=== PATIENT | male | born 1975 | race Two or more races ===

== ENCOUNTER 2021-02-18 09:56 | Outpatient (REF) | payer OTHER, SELFPAY ==
--- NOTE | ~2021-02-18 | XR_ITS ---
EXAMINATION: XR LUMBOSACRAL SPINE CLINICAL INFORMATION: Low back pain. COMPARISON: None TECHNIQUE: Three views of the lumbosacral spine. FINDINGS: There is normal lumbar lordosis. The vertebral heights, alignment and disc heights are normal. There is no visible acute fracture, dislocation or lytic process seen. The SI joints are symmetrical and normal. The paravertebral soft tissues are normal. XR/XR lumbar spine 2-3V IMPRESSION: Unremarkable lumbar spine exam.
== END 2021-02-18 09:57 | disposition home or self-care (01) ==
LOC: HO.XRAY 09:56
PROVIDERS: PCP Internal Medicine; Visit Provider Nurse Practitioner Family
DX: M54.5 Low back pain (principal)
CPT/HCPCS: 72100

== ENCOUNTER → 2023-04-10 09:30 | Outpatient (BNVA) | payer OTHER, SELFPAY | PROVIDERS: PCP Nurse Practitioner Family; Referring Provider Nurse Practitioner Family; Visit Provider Surgery | DX: K42.9 Umbilical hernia without obstruction or gangrene (principal) | CPT/HCPCS: 99202 ==

== ENCOUNTER 2023-05-15 06:56 | Day surgery (SDC) | payer OTHER, SELFPAY ==
[2023-05-10 11:39] VITALS: BMI 36.5
--- NOTE | 2023-05-14 10:26 | HO.ANESPROP2 ---
HPI - Anesthesia Eval Consult details Narrative: 48yo M for Open Hernia Repair Umbilical w/ Mesh PMFSH Active Problems Active Problems: All Active Problems (Updated 02/16/21 @ 17:35 by Kalli Gregg NP) Umbilical hernia (Acute) Lumbar pain (Acute) Past Medical History Medical History Lumbar pain Family History Family History Mother No problems noted. Father No problems noted. Surgical History Surgical History Surgical history unknown Social History Social History Alcohol intake: never Patient Tobacco Use Status: Never used Tobacco service: No Cognitive needs: No Hearing needs: No Vision needs: No Meds Allergies Allergy/AdvReac Type Severity Reaction Status Date / Time seafood Allergy Anaphylaxis Verified 05/15/23 08:28 Exam Exam Date and Time: May 14, 2023 1026 Height,Weight and Vital Signs: Height 5 ft 7 in Weight 105.687 kg Assessment and Plan Assessment Anesthesia Assessment: Chart Reviewed
--- NOTE | 2023-05-14 12:17 | MHC.SHP ---
Pre-Procedural Eval Section A Date of Service: 05/14/23 The patient is an INPATIENT: No Changes since office visit: No Cold of Flu in the past 2 weeks, No New Medical Problems, No Changes in Medication and No Patient answered all questions The History & Physical has been completed within 30 days and I have reviewed it.: Yes Section B Chief Complaint: Umbilical hernia without obstruction or gangrene Allergies: Allergies Allergy/AdvReac Type Severity Reaction Status Date / Time No Known Allergies Allergy Verified 04/10/23 09:38 Plan I have reviewed the history and physical and performed a pertinent physical examination on my patient. No changes have occurred unless specified. Time Spent With Patient Time: Total time managing care of this patient today ____ minutes.
[2023-05-15 09:09] VITALS: BP 172/82; PULSE 60; RESP 16; TEMP 36.6; O2SAT 99
[2023-05-15] MEDS: Lactated Ringers 1,000 ML 100 ML IVCONT (09:24)
--- NOTE | 2023-05-15 10:14 | P.CONAN_ITS ---
[facility] Active Problems Active Problems: All Active Problems (Updated 02/16/21 @ 17:35 by Kalli Gregg NP) Umbilical hernia (Acute) Lumbar pain (Acute) Past Medical History Medical History Lumbar pain Family History Family History Mother No problems noted. Father No problems noted. Surgical History Surgical History Surgical history unknown History of Problems with Anesthesia: No Social History Social History Alcohol intake: never Patient Tobacco Use Status: Never used Tobacco Use of substances other than those prescribed or required for medical reasons: No Are you DNR?: No Advance Directives: No Advance Directives Information Provided: Yes Recently lost weight without trying: No Nutrition Risks: No Nutritional Risk service: No Cognitive needs: No Hearing needs: No Vision needs: No Meds Allergies Allergy/AdvReac Type Severity Reaction Status Date / Time seafood Allergy Anaphylaxis Verified 05/15/23 08:28 Active Medications: Current Medications Lactated Ringer's (Lr) 1,000 mls @ 100 mls/hr IVCONT .Q10H MONALISA Last Admin: 05/15/23 09:24 Dose: 100 mls/hr Exam Exam Date and Time: May 15, 2023 1014 Height,Weight and Vital Signs: Height 5 ft 7 in Weight 105.687 kg Last Vital Signs Temp 97.8 F 05/15/23 09:09 Pulse 60 05/15/23 09:09 Resp 16 05/15/23 09:09 BP 172/82 H 05/15/23 09:09 Pulse Ox 99 05/15/23 09:09 O2 Del Method Room Air 05/15/23 09:09 Airway Mallampati Class: II TM Dist: >3cm Neck ROM: Full Heart: RRR Lungs: CTA Assessment and Plan Final Anesthetic Review History of Problems with Anesthesia: No NPO: Yes ASA Class: II Final Preanesthetic Review: Meds/Allgs Chart Reviewed, Consent Obtained/Reviewed and Anes Risks/Benef Reviewed Patient Risk: Low Procedure Risk: Low Anesthetic Plan Anesthetic Plan: GA Disposition: Standard PACU
--- NOTE | 2023-05-15 10:38 | P.OP_ITS ---
Operative Note Operative Note Date of Service: 05/15/23 Narrative: Preoperative diagnosis: [] Incarcerated umbilical hernia Postop diagnosis: [] Same Procedure [] repair incarcerated umbilical hernia with Bard mesh Surgeon: [] Shan Dance Choreographer: [] isaura Garg Type of Anesthesia: [] General Indication for surgery: [] Approximately 3 cm incarcerated umbilical hernia with omental contents Findings: [] Patient brought to the operating room, placed on operative table supine position, after adequate level of general anesthesia was induced, the patient's abdomen was prepped and draped in usual sterile fashion. Using an infraumbilical curvilinear incision, this carried down through skin, subcutaneous tissue, where hernia sac was identified and dissected off the posterior aspect of the umbilicus. Dissection was carried down to the fascia where sac was opened and incarcerated omentum and sac were amputated using Bovie. Specimen sent to pathology. Fascia was circumferentially cleared and a Bard mesh was placed in the defect. The superficial layer of the mesh was circumferentially sutured to the surrounding fascia using 0 Ethibond suture. At completion, mesh was in good position with no gaps or tension. Wound was irrigated, secured hemostasis, and closed in the following manner; posterior aspect of the umbilicus was tacked to the wound floor using interrupted 3-0 Vicryl sutures. Skin was closed using interrupted inverted dermal 3-0 Vicryl sutures followed by Steri-Strips and sterile dressings. Wound was infiltrated 0.5% Marcaine/1% lidocaine at completion of the procedure. Sponge, needle, and instrument counts were reported to be correct. Patient tolerated the procedure well and emerged anesthesia stable condition. EBL minimal
[2023-05-15 10:50] VITALS: BP 137/65; PULSE 60; RESP 16; TEMP 36.1; O2SAT 95
[2023-05-15 10:55] VITALS: BP 146/76; PULSE 59; RESP 16; O2SAT 100
[2023-05-15 11:00] VITALS: BP 133/68; PULSE 59; RESP 16; O2SAT 99
[2023-05-15 11:05] VITALS: BP 142/77; PULSE 61; RESP 16; O2SAT 99
[2023-05-15 11:20] VITALS: BP 145/74; PULSE 61; RESP 16; TEMP 36.1; O2SAT 96
--- NOTE | 2023-05-15 12:50 | HO.POSTANES ---
Post Anesthesia Evaluation Post Anesthesia Evaluation Date of Service: 05/15/23 Vital Signs: Vital Signs Temp Pulse Resp BP Pulse Ox O2 Del Method O2 Flow Rate 05/15/23 11:20 97 F 61 16 145/74 H 96 Room Air 05/15/23 11:05 61 16 142/77 H 99 Room Air 0 05/15/23 11:00 59 16 133/68 99 Nasal Cannula 2 05/15/23 10:55 59 16 146/76 H 100 Nasal Cannula 2 05/15/23 10:50 97 F 60 16 137/65 95 Nasal Cannula 2 05/15/23 09:09 97.8 F 60 16 172/82 H 99 Room Air Anesthesia: General LMA Mental Status: Awake Pain Control: Satisfactory Nausea/Vomiting: None Hydration: Adequate Anesthesia-Related Issues: No Anes. Related Issues
== END 2023-05-15 12:17 | disposition home or self-care (01) ==
PROVIDERS: PCP Internal Medicine; Visit Provider Surgery
PROC: (CPT 49592; principal; 2023-05-15 09:10)
DX: K42.0 Umbilical hernia with obstruction, without gangrene (principal)
CPT/HCPCS: 49592; 88302; C1781; J0690; J1100; J1885; J2250; J2405; J2795; J3010

== ENCOUNTER → 2023-05-23 13:13 | Outpatient (BNVA) | payer OTHER, SELFPAY | PROVIDERS: PCP Internal Medicine; Visit Provider Surgery ==

== ENCOUNTER 2023-12-13 10:24 | Emergency (ER) | payer OTHER, SELFPAY ==
[2023-12-13 10:49] VITALS: BP 178/90; PULSE 67; RESP 16; TEMP 36.6; O2SAT 98; BMI 37.3
[2023-12-13 12:44] VITALS: BP 214/95; PULSE 55; RESP 16; TEMP 36.3; O2SAT 99
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
[2023-12-13 13:10] VITALS: BP 201/93; PULSE 63; O2SAT 98
== END 2023-12-13 13:18 | disposition home or self-care (01) ==
PROVIDERS: Emergency Provider Emergency Medicine; PCP Internal Medicine
DX: Z04.1 Encounter for examination and observation following transport accident (principal); M79.10 Myalgia, unspecified site; I10 Essential (primary) hypertension
CPT/HCPCS: 99283